=== PATIENT | male | born 1990 | race Caucasian/White ===

== ENCOUNTER 2017-03-20 19:11 | Emergency (ER) | payer BC ==
[2017-03-20 19:17] VITALS: BP 140/83
[2017-03-20] MEDS ORDERED: cefTRIAXone 1 GM, Lidocaine 1% 2.1 ML IM SCH ×2 (19:30)
--- NOTE | 2017-03-20 19:33 | EDM.PDOC ---
ED HPI GENERAL MEDICAL PROBLEM - General Chief Complaint: ENT Problem Stated Complaint: TOOTH PAIN Time Seen by Provider: 03/20/17 19:13 Source of Information: Reports: Patient History Limitations: Reports: No Limitations - History of Present Illness INITIAL COMMENTS - FREE TEXT/NARRATIVE: There is a 26-year-old male. He's been having some tooth difficulty for the last 3 weeks but over the last 2 days he's had marked increased pain. He states she's been having some chilling but no documented fever. He has been using some Tylenol to help with the pain as well as the chilling. He has not been eating much but he has been drinking fluids. He does have a dentist here in town and plans to give him a call on Wednesday about being seen for possible tooth extraction. His dentist however will not pull the tooth unless the infection is gone. He denies any nausea vomiting or diarrhea denies any cough or congestion. The pain in his left lower jaw does seem to radiate into his left ear. Left Lower Tooth/Teeth Pain Score (Numeric/FACES): 10 - Related Data Allergies Allergy/AdvReac Type Severity Reaction Status Date / Time amoxicillin [Amoxicillin] Allergy Rash Verified 05/28/16 19:51 Home Meds: Home Meds Clindamycin HCl [Cleocin HCl] 300 mg PO TID #21 capsule 03/20/17 [Rx] Hydrocodone/Acetaminophen [Hydrocodon-Acetaminophen 5-325] 1 each PO Q6H PRN # 12 tablet 03/20/17 [Rx] Past Medical History - Past Health History Medical/Surgical History: Denies Medical/Surgical History Gastrointestinal History: Reports: Gastritis Psychiatric History: Reports: Anxiety - Infectious Disease History Infectious Disease History: Reports: MRSA Other Infectious Disease History: hx of MRSA - Past Surgical History GI Surgical History: Reports: Appendectomy Social & Family History - Family History Cardiac: Reports: Prior Cardiac Arrest Other Cardiac Family History: pt states that grandfather of heart attack at age 44 - Tobacco Use Smoking Status *Q: Former Smoker Years of Tobacco use: 10 Packs/Tins Daily: 0.5 Used Tobacco, but Quit: Yes Month Tobacco Last Used: 1 month - Caffeine Use Caffeine Use: Reports: Soda, Tea - Alcohol Use Days Per Week of Alcohol Use: 1 Number of Drinks Per Day: 3 Total Drinks Per Week: 3 - Recreational Drug Use Recreational Drug Use: No - Living Situation & Occupation Living situation: Reports: Single Occupation: Employed ED ROS ENT - Review of Systems Review Of Systems: See Below Constitutional: Reports: Chills. Denies: Fever HEENT: Reports: Dental Pain Respiratory: Reports: No Symptoms Cardiovascular: Reports: No Symptoms Endocrine: Reports: No Symptoms GI/Abdominal: Reports: No Symptoms : Reports: No Symptoms Musculoskeletal: Reports: No Symptoms Skin: Reports: No Symptoms Neurological: Reports: No Symptoms Psychiatric: Reports: No Symptoms ED EXAM, ENT - Physical Exam Exam: See Below Exam Limited By: No Limitations General Appearance: Alert, WD/WN, No Apparent Distress Eye Exam: Bilateral Eye: Normal Inspection Ears: Normal External Exam, Normal Canal, Normal TMs Nose: Normal Inspection Mouth/Throat: Other (History through an fair repair but in the left lower jaw last molar in the left upper jaw last molar there is obvious advanced dental caries with some tooth fracturing noted, the gum is not swollen there is no evidence of abscess, his face does not have any obvious swelling there is no lymphadenopathy the angle of the jaw) Head: Normocephalic Neck: Supple. No: Lymphadenopathy (L), Lymphadenopathy (R) Respiratory/Chest: No Respiratory Distress, Lungs Clear, Normal Breath Sounds Cardiovascular: Regular Rate, Rhythm, No Murmur GI/Abdominal: Soft Back: Full Range of Motion Extremities: Normal Range of Motion Neurological: Alert, Oriented Psychiatric: Normal Affect, Normal Mood Skin: Warm, Dry Course - Vital Signs Last Recorded V/S: Last Vital Signs Temp 98.1 F 03/20/17 19:16 Pulse 91 03/20/17 19:16 Resp 20 03/20/17 19:16 BP 140/83 03/20/17 19:16 Pulse Ox 97 03/20/17 19:16 - Orders/Labs/Meds Orders: Active Orders 24 hr Category Date Time Status cefTRIAXone 1 GM with Lidocaine 1% 2.1 ML IM Med 03/20/17 19:30 Ordered cefTRIAXone [Rocephin] 1 gm Lidocaine 1% [Xylocaine 1%] 2.1 ml IM Q24H Departure - Departure Time of Disposition: 19:30 Disposition: Home, Self-Care 01 Condition: Good Clinical Impression: Infected dental caries, Pain due to dental caries - Discharge Information Prescriptions: Clindamycin HCl [Cleocin HCl] 300 mg PO TID #21 capsule Hydrocodone/Acetaminophen [Hydrocodon-Acetaminophen 5-325] 1 each PO Q6H PRN # 12 tablet PRN Reason: Pain Referrals: Rogerio Malin Jr, MD [Primary Care Provider] - Additional Instructions: If the antibiotics and the pain medications filled tomorrow at [facility] they're the only ones that are open on Wednesday, continue with lots of fluids, continue with the Tylenol if needed for chills or pain, call your dentist on Wednesday for an appointment for evaluation of your teeth, return to the ER if needed - My Orders Last 24 Hours: My Active Orders 03/20/17 19:30 cefTRIAXone 1 GM with Lidocaine 1% 2.1 ML IM cefTRIAXone [Rocephin] 1 gm Lidocaine 1% [Xylocaine 1%] 2.1 ml IM Q24H - Assessment/Plan Last 24 Hours: My Active Orders 03/20/17 19:30 cefTRIAXone 1 GM with Lidocaine 1% 2.1 ML IM cefTRIAXone [Rocephin] 1 gm Lidocaine 1% [Xylocaine 1%] 2.1 ml IM Q24H
== END 2017-03-20 19:55 | disposition home or self-care (01) ==
LOC: JD.ED 19:11
DX: K02.9 Dental caries, unspecified (principal); Z88.1 Allergy status to other antibiotic agents; Z87.891 Personal history of nicotine dependence; Z90.49 Acquired absence of other specified parts of digestive tract
CPT/HCPCS: 96372; 99282; J0696

== ENCOUNTER 2017-04-03 10:59 | Emergency (ER) | payer BC ==
[2017-04-03 11:34] VITALS: BP 129/80
--- NOTE | 2017-04-03 11:37 | EDM.PDOC ---
ED HPI GENERAL MEDICAL PROBLEM - General Chief Complaint: General Stated Complaint: DENTAL COMPLAINT Time Seen by Provider: 04/03/17 11:20 Source of Information: Reports: Patient, Old Records (recent ER visit), Other ( [place] [employer] Aware) History Limitations: Reports: No Limitations - History of Present Illness INITIAL COMMENTS - FREE TEXT/NARRATIVE: 6-year-old male presents for evaluation treatment of dental pain. Patient reports that he isn't struggling within dental infection in the left lower jaw for several weeks. He was seen in the ER 03-20-17. He was prescribed clindamycin and Dulzura. He states they took the clindamycin to completion. This seemed greatly help he was pain-free for about 4 days after finishing it. He reports it is now again developed pain to the left lower jaw. He also has appreciated a small not in his jaw. He reports throbbing into his neck and for head. Reports associated symptoms of nausea, vomiting, headaches and dental pain. No fevers or chills. Reports he vomited twice today. He states that he contacted his dentist but the dentist would not see him unless if he could pay up front. Patient was he has not had any dental insurance and can not afford to see him at this time. He did see his primary care provider about 2 days ago. He is given Percocet for the pain. Tooth/Teeth Pain Score (Numeric/FACES): 3 Headache Pain Score (Numeric/FACES): 5 - Related Data Allergies Allergy/AdvReac Type Severity Reaction Status Date / Time amoxicillin [Amoxicillin] Allergy Rash Verified 04/03/17 11:05 Home Meds: Home Meds Clindamycin HCl 300 mg PO QID #40 capsule 04/03/17 [Rx] Oxycodone. 04/03/17 [History] Past Medical History - Past Health History Medical/Surgical History: Denies Medical/Surgical History Gastrointestinal History: Reports: Gastritis Psychiatric History: Reports: Anxiety - Infectious Disease History Infectious Disease History: Reports: MRSA Other Infectious Disease History: hx of MRSA - Past Surgical History GI Surgical History: Reports: Appendectomy Social & Family History - Family History Cardiac: Reports: Prior Cardiac Arrest Other Cardiac Family History: pt states that grandfather of heart attack at age 44 - Tobacco Use Smoking Status *Q: Former Smoker Years of Tobacco use: 10 Packs/Tins Daily: 1 Used Tobacco, but Quit: No Month Tobacco Last Used: february - Caffeine Use Caffeine Use: Reports: Soda, Tea - Alcohol Use Days Per Week of Alcohol Use: 1 Number of Drinks Per Day: 3 Total Drinks Per Week: 3 - Recreational Drug Use Recreational Drug Use: No - Living Situation & Occupation Living situation: Reports: Single Occupation: Employed ED ROS GENERAL - Review of Systems Review Of Systems: See Below Constitutional: Denies: Fever, Chills HEENT: Reports: Dental Pain (left lower molar) Respiratory: Reports: Cough (x1 week) GI/Abdominal: Reports: Nausea, Vomiting Neurological: Reports: Headache ED EXAM, GENERAL - Physical Exam Exam: See Below Exam Limited By: No Limitations General Appearance: Alert, WD/WN, No Apparent Distress Ears: Normal External Exam, Normal Canal, Hearing Grossly Normal, Normal TMs Nose: Normal Inspection Throat/Mouth: Normal Inspection, Normal Lips, Normal Voice, No Airway Compromise , Other (dental pain to #19; no obvious dental abscess; multiple carries present to remainder of the teeth) Neck: Normal Inspection, Supple, Non-Tender. No: Lymphadenopathy (L), Lymphadenopathy (R) Respiratory/Chest: No Respiratory Distress, Lungs Clear, Normal Breath Sounds Cardiovascular: Normal Peripheral Pulses, Regular Rate, Rhythm, No Murmur Neurological: Alert, Oriented, Normal Cognition Psychiatric: Normal Affect, Normal Mood Skin Exam: Warm, Dry, Normal Color Course - Vital Signs Last Recorded V/S: Last Vital Signs Temp 36.7 C 04/03/17 11:06 Pulse 54 L 04/03/17 11:06 Resp BP 129/80 04/03/17 11:06 Pulse Ox 98 04/03/17 11:06 Departure - Departure Time of Disposition: 11:37 Disposition: Home, Self-Care 01 Condition: Good Clinical Impression: Infected dental caries - Discharge Information Prescriptions: Clindamycin HCl 300 mg PO QID #40 capsule Instructions: Dental Abscess, [id number] Referrals: Rogerio Malin Jr, MD [Primary Care Provider] - Forms: ED Department Discharge Additional Instructions: Clindamycin 1 tab every 6 hours for 10 days. Take this medication with food. Recommend starting yogurt or probiotic this medication can be hard on your stomach. Continue with the Percocet as needed for pain. may take [id number] ibuprofen as needed for less severe pain. Percocet can be habit-forming, I recommend you take as few of thes as needed to control your pain. Follow up with dental soon as you're able to. If you are unable to see a dentist in [facility] due to cost concerns, recommend [facility] in [place]. Please call Wednesday to see if they can help you. Call [phone] Please return to the ER if your symptoms change or worsen.
== END 2017-04-03 11:45 | disposition home or self-care (01) ==
LOC: JD.ED 10:59
DX: K02.9 Dental caries, unspecified (principal); Z88.1 Allergy status to other antibiotic agents; Z87.891 Personal history of nicotine dependence
CPT/HCPCS: 99283

== ENCOUNTER 2019-09-27 23:07 | Emergency (ER) | payer BC ==
[2019-09-27 23:21] VITALS: BP 145/87; PULSE 74
[2019-09-27] MEDS ORDERED: Albuterol 6.7 GM Inhaler INH ONE (23:42)
[2019-09-27] MEDS ORDERED: predniSONE 20 MG Tab PO ONE (23:43)
--- NOTE | 2019-09-28 00:11 | EDM.PDOC ---
ED HPI GENERAL MEDICAL PROBLEM - General Chief Complaint: Respiratory Problem Stated Complaint: SOB COUGH HEAVY CHEST Time Seen by Provider: 09/27/19 23:19 Source of Information: Reports: Patient History Limitations: Reports: No Limitations - History of Present Illness INITIAL COMMENTS - FREE TEXT/NARRATIVE: The patient presents with a cough and shortness of breath. This has been going on for about a week. He has no fever or chills. He has no history of asthma but at one time in the past he was given an inhaler. He has no chest pain, abdominal pain, nausea, vomiting or diarrhea. He has not been traveling much. He does not smoke. Onset: Gradual Duration: Week(s): (1) Severity: Moderate Improves with: Reports: None Worsens with: Reports: None Associated Symptoms: Reports: Cough, Shortness of Breath. Denies: Chest Pain, Fever/Chills, Headaches, Nausea/Vomiting - Related Data Allergies Allergy/AdvReac Type Severity Reaction Status Date / Time amoxicillin [Amoxicillin] Allergy Rash Verified 09/27/19 23:21 Home Meds: Home Meds Pantoprazole [ProTONIX] 1 tab PO DAILY 09/27/19 [History] predniSONE [Prednisone] 40 mg PO DAILY #10 tablet 09/28/19 [Rx] Past Medical History - Past Health History Medical/Surgical History: Denies Medical/Surgical History Gastrointestinal History: Reports: Gastritis, GERD Psychiatric History: Reports: Anxiety - Infectious Disease History Infectious Disease History: Reports: MRSA Other Infectious Disease History: hx of MRSA - Past Surgical History GI Surgical History: Reports: Appendectomy Social & Family History - Family History Cardiac: Reports: Prior Cardiac Arrest Other Cardiac Family History: pt states that grandfather of heart attack at age 44 - Tobacco Use Smoking Status *Q: Never Smoker Second Hand Smoke Exposure: No - Caffeine Use Caffeine Use: Reports: None - Recreational Drug Use Recreational Drug Use: No - Living Situation & Occupation Living situation: Reports: Single Occupation: Employed ED ROS GENERAL - Review of Systems Review Of Systems: See Below Constitutional: Reports: No Symptoms HEENT: Reports: No Symptoms Respiratory: Reports: Shortness of Breath, Cough Cardiovascular: Reports: No Symptoms Endocrine: Reports: No Symptoms GI/Abdominal: Reports: No Symptoms : Reports: No Symptoms ED EXAM, GENERAL - Physical Exam Exam: See Below Exam Limited By: No Limitations General Appearance: Alert, No Apparent Distress Ears: Normal External Exam Nose: Normal Inspection Head: Atraumatic, Normocephalic Neck: Normal Inspection Respiratory/Chest: No Respiratory Distress, Wheezing (Moderate) Cardiovascular: Regular Rate, Rhythm, No Edema, No Murmur GI/Abdominal: Soft, Non-Tender, No Organomegaly, No Mass Back Exam: Normal Inspection Extremities: Normal Inspection Neurological: Alert, Oriented, No Motor/Sensory Deficits Course - Vital Signs Last Recorded V/S: Last Vital Signs Temp 97.5 F 09/27/19 23:18 Pulse 74 09/27/19 23:18 Resp 16 09/27/19 23:18 BP 145/87 H 09/27/19 23:18 Pulse Ox 98 09/27/19 23:18 - Orders/Labs/Meds Orders: Active Orders 24 hr Category Date Time Status RT Post Treatment Assessment [RC] Click to Edit Care 09/27/19 23:42 Active RT Pre-Treatment Assessment [RC] Click to Edit Care 09/27/19 23:42 Active CXR [Chest 1V Frontal] [CR] Stat Exams 09/27/19 23:43 Taken Meds: Medications Discontinued Medications Generic Name Dose Route Start Last Admin Trade Name Brandt PRN Reason Stop Dose Admin Albuterol 0 gm 09/27/19 23:42 09/28/19 00:01 Proventil Hfa INH 09/27/19 23:43 2 puff ONETIME ONE Administration Prednisone 40 mg 09/27/19 23:43 09/28/19 00:09 Prednisone PO 09/27/19 23:44 40 mg ONETIME ONE Administration - Re-Assessments/Exams Free Text/Narrative Re-Assessment/Exam: 09/28/19 00:10 I ordered albuterol 2 puffs, CXR and prednisone 40mg PO. His CXR looks good. 09/28/19 00:20 He sounds better. I will give him the inhaler to go home with and get him on prednisone for 5 days. Departure - Departure Time of Disposition: 00:25 Disposition: Home, Self-Care 01 Condition: Good Clinical Impression: Reactive airway disease Qualifiers: Asthma severity: mild Asthma persistence: intermittent Asthma complication type : with acute exacerbation Qualified Code(s): J45.21 - Mild intermittent asthma with (acute) exacerbation - Discharge Information *PRESCRIPTION DRUG MONITORING PROGRAM REVIEWED*: Not Applicable *COPY OF PRESCRIPTION DRUG MONITORING REPORT IN PATIENT ZAC: Not Applicable Prescriptions: predniSONE [Prednisone] 40 mg PO DAILY #10 tablet Referrals: Rogerio Malin Jr, MD [Primary Care Provider] - 1 Week Forms: ED Department Discharge, ED Return to Work/School Form Additional Instructions: Use the inhaler 2 puffs every 6 hours as needed for shortness of breath and wheezing. Take the prednisone 40mg daily for 5 days. Please return if you are worse. Sepsis Event Note - Evaluation Sepsis Screening Result: No Definite Risk - Focused Exam Vital Signs: Vital Signs Temp Pulse Resp BP Pulse Ox 09/27/19 23:18 97.5 F 74 16 145/87 H 98 Date Exam was Performed: 09/28/19 Time Exam was Performed: 00:20 - My Orders Last 24 Hours: My Active Orders 09/27/19 23:42 RT Post Treatment Assessment [RC] Click to Edit RT Pre-Treatment Assessment [RC] Click to Edit 09/27/19 23:43 CXR [Chest 1V Frontal] [CR] Stat - Assessment/Plan Last 24 Hours: My Active Orders 09/27/19 23:42 RT Post Treatment Assessment [RC] Click to Edit RT Pre-Treatment Assessment [RC] Click to Edit 09/27/19 23:43 CXR [Chest 1V Frontal] [CR] Stat
--- NOTE | 2019-09-28 08:14 | CR ---
Chest: Portable view of the chest was obtained. Comparison: Prior chest x-ray of 06/01/16. Heart size and mediastinum appear within normal limits for portable technique. Lungs are clear with no acute parenchymal change. Bony structures are grossly intact. Impression: 1. Nothing acute is appreciated on portable chest x-ray. Diagnostic code #1 Study was dictated in MDT
== END 2019-09-28 00:42 | disposition home or self-care (01) ==
LOC: JD.ED 23:07
DX: J45.21 Mild intermittent asthma with (acute) exacerbation (principal); Z88.1 Allergy status to other antibiotic agents
CPT/HCPCS: 71045; 99285; A9270; 99283